=== PATIENT | male | born 2000 | race Caucasian/White ===

== ENCOUNTER 2019-02-26 00:13 | Emergency (ER) | payer OTHER ==
[2019-02-26 00:20] VITALS: BP 129/84
[2019-02-26] MEDS ORDERED: TRAMADOL HCL 50 MG TABLET PO ONE (00:53)
[2019-02-26] MEDS ORDERED: ONDANSETRON 4 MG TAB.RAPDIS PO ONE (00:53)
--- NOTE | 2019-02-26 00:55 | ER Document Report ---
ED General - General Chief Complaint: Bloody Stools Stated Complaint: BLOODY STOOL Time Seen by Provider: 02/26/19 00:52 Mode of Arrival: Ambulatory Information source: Patient TRAVEL OUTSIDE OF THE [place] IN LAST 30 DAYS: No - HPI Notes: Patient complains of abdominal cramping. States started approximate 1 hour ago. It radiates across the abdomen. Nothing makes it better or worse. It is moderate intensity. He denies any trouble with urination. He states he has had loose stool and some diarrhea today. There is one episode of blood in his diarrhea. No fevers. No previous history of abdominal surgeries. - Related Data Allergies/Adverse Reactions: No Known Drug Allergies Allergy (Verified 02/26/19 00:58) Past Medical History - General Information source: Patient - Social History Smoking Status: Never Smoker Frequency of alcohol use: None Drug Abuse: None Family History: Reviewed & Not Pertinent Review of Systems - Review of Systems Constitutional: Malaise, Weakness. denies: Chills, Fever Cardiovascular: denies: Chest pain, Dyspnea Respiratory: denies: Cough, Short of breath Gastrointestinal: Abdominal pain, Diarrhea -: Yes All other systems reviewed and negative Physical Exam - Vital signs Vitals: Temp Pulse Resp BP Pulse Ox 98.3 F 58 L 16 129/84 H 97 02/26/19 00:19 02/26/19 00:19 02/26/19 00:19 02/26/19 00:02/26/19 00:19 Interpretation: Normal - General General appearance: Appears well, Alert - HEENT Head: Normocephalic, Atraumatic Eyes: Normal Pupils: PERRL - Respiratory Respiratory status: No respiratory distress Chest status: Nontender Breath sounds: Normal Chest palpation: Normal - Cardiovascular Rhythm: Regular Heart sounds: Normal auscultation Murmur: No - Abdominal Inspection: Normal Distension: No distension Bowel sounds: Normal Tenderness: Nontender Organomegaly: No organomegaly - Back Back: Normal, Nontender - Extremities General upper extremity: Normal inspection, Nontender, Normal color, Normal ROM, Normal temperature General lower extremity: Normal inspection, Nontender, Normal color, Normal ROM, Normal temperature, Normal weight bearing. No: Polo's sign - Neurological Neuro grossly intact: Yes Cognition: Normal Orientation: AAOx4 Emperatriz Coma Scale Eye Opening: Spontaneous Marcellus Coma Scale Verbal: Oriented Marcellus Coma Scale Motor: Obeys Commands Emperatriz Coma Scale Total: 15 Speech: Normal Motor strength normal: LUE, RUE, LLE, RLE Sensory: Normal - Psychological Associated symptoms: Normal affect, Normal mood - Skin Skin Temperature: Warm Skin Moisture: Dry Skin Color: Normal Course - Re-evaluation Re-evalutation: 02/26/19 02:20 Patient reevaluated just now. Abdomen still soft nontender and nondistended. Laboratory evaluation is unremarkable. Vitals are unremarkable. I feel the patient can be safely discharged home to follow-up as an outpatient. - Vital Signs Vital signs: Temp Pulse Resp BP Pulse Ox 98.3 F 58 L 16 129/84 H 97 02/26/19 00:19 02/26/19 00:19 02/26/19 00:19 02/26/19 00:19 02/26/19 00:19 - Laboratory Result Diagrams: 02/26/19 01:11 02/26/19 01:11 Discharge - Discharge Clinical Impression: Diarrhea Qualifiers: Diarrhea type: presumed infectious Qualified Code(s): R19.7 - Diarrhea, unspec ified Condition: Stable Disposition: HOME, SELF-CARE Instructions: Diarrhea, Nonspecific ([facility]) Additional Instructions: Please call your family doctor as soon as possible to obtain follow-up Prescriptions: Ciprofloxacin HCl [Cipro 500 mg Tablet] 500 mg PO BID #10 tablet Metronidazole [Flagyl 500 mg Tablet] 500 mg PO BID #10 tablet Ondansetron [Zofran Odt 4 mg Tablet] 1 tab PO Q4H PRN #8 tab.rapdis PRN Reason: For Nausea/Vomiting Forms: Return to Work
[2019-02-26 01:20] LABS: ABSOLUTE BASOPHILS # (AUTO) 0.1 10^3/uL (0.0-0.2); ABSOLUTE EOSINOPHILS # (AUTO) 0.2 10^3/uL (0.0-0.6); ABSOLUTE LYMPHOCYTES (AUTO) 3.2 10^3/uL (0.5-4.7); ABSOLUTE MONOCYTES (AUTO) 0.8 10^3/uL (0.1-1.4); ABSOLUTE NEUT (AUTO) 4.2 10^3/uL (1.7-8.2); BASOPHILS % (AUTO) 0.9 % (0-2); EOSINOPHILS % (AUTO) 2.6 % (0-6); HEMATOCRIT 43.6 % (37.9-51.0); LYMPHOCYTES % (AUTO) 37.6 % (13-45); MEAN CORPUSCULAR HEMOGLOBIN 28.1 pg (27.0-33.4); MEAN CORPUSCULAR HGB CONC 34.3 g/dL (32.0-36.0); MEAN CORPUSCULAR VOLUME 82 fl (80-97); MONOCYTES % (AUTO) 9.3 % (3-13); PLATELET COUNT 257 10^3/uL (150-450); RED BLOOD COUNT 5.33 10^6/uL (4.35-5.55); RED CELL DISTRIBUTION WIDTH 13.7 % (11.5-14.0); SEGMENTED NEUTROPHILS % (AUTO) 49.6 % (42-78); TOTAL CELLS COUNTED % (AUTO) 100 %; WHITE BLOOD COUNT 8.6 10^3/uL (4.0-10.5)
[2019-02-26 01:22] LABS: APPEARANCE,URINE CLEAR; BILIRUBIN,URINE NEGATIVE (NEGATIVE); COLOR,URINE YELLOW; GLUCOSE, URINE NEGATIVE (NEGATIVE); KETONES,URINE NEGATIVE (NEGATIVE); LEUKOCYTE ESTERASE,URINE NEGATIVE (NEGATIVE); NITRITE,URINE NEGATIVE (NEGATIVE); PROTEIN,URINE NEGATIVE (NEGATIVE); URINE SPECIFIC GRAVITY 1.017; UROBILINOGEN,URINE NEGATIVE mg/dL (<2.0)
[2019-02-26 01:46] LABS: ASPARTATE AMINO TRANSFERASE 37 U/L (17-59); BILIRUBIN,DIRECT 0.4 mg/dL (0.0-0.4); BILIRUBIN,TOTAL 0.6 mg/dL (0.2-1.3); BLOOD UREA NITROGEN 14 mg/dL (7-20); CALCIUM 10.1 mg/dL (8.4-10.2); CARBON DIOXIDE 26 mmol/L (22-30); CHLORIDE 102 mmol/L (98-107); GLUCOSE 90 mg/dL (75-110); NEONATAL BILIRUBIN RESULT 0.3 mg/dL (0.1-1.1); TOTAL PROTEIN 7.7 g/dL (6.3-8.2)
[2019-02-26 01:56] LABS: ALBUMIN 4.9 g/dL (3.5-5.0); ALKALINE PHOSPHATASE 87 U/L (38-126); ANION GAP 12 (5-19); POTASSIUM 4.2 mmol/L (3.6-5.0)
== END 2019-02-26 02:31 | disposition home or self-care (01) ==
LOC: ER 00:13
DX: K92.1 Melena (principal); R53.1 Weakness; R10.9 Unspecified abdominal pain
CPT/HCPCS: 99284; 36415; 85025; 80053; 81001; S0119

== ENCOUNTER 2019-03-05 14:27 | Emergency (ER) | payer OTHER ==
--- NOTE | 2019-03-05 15:13 | ER Document Report ---
ED Medical Screen (RME) - General Chief Complaint: Abdominal Pain Stated Complaint: NAUSEA,HEADACHE,RIGHT ANKLE PAIN Time Seen by Provider: 03/05/19 15:06 Mode of Arrival: Ambulatory Information source: Patient Notes: Patient is an otherwise healthy 18-year-old male presented to the emergency department with chief complaint of left lower quadrant abdominal pain, right ankle pain and nausea. Patient reports he was seen last week and diagnosed with a possible virus but patient reports he was put on antibiotics. He reports that he was told to come back in a week if his symptoms have not improved. He reports he has not had a bowel movement in 2 days. He states he is now out of nausea medication. Additionally patient also complains of right ankle pain as he states he rolled his ankle at work 2 days ago. He denies any treatment for this. Exam: Mild tenderness to palpation to the left lower quadrant without guarding or rebound. Patient appears well, nontoxic. No obvious swelling or deformity noted to right ankle. I have greeted and performed a rapid initial assessment of this patient. A comprehensive ED assessment and evaluation of the patient, analysis of test results and completion of the medical decision making process will be conducted by additional ED providers. I have specifically instructed the patient or family members with the patient to immediately return to any nursing staff should anything change in the patient's condition or with their chief complaint. This medical record was dictated with voice recognizing software. There may be grammatical, syntax errors that are unintended. TRAVEL OUTSIDE OF THE [place] IN LAST 30 DAYS: No - Related Data Allergies/Adverse Reactions: No Known Drug Allergies Allergy (Verified 02/26/19 00:58) Past Medical History - Social History Chew tobacco use (# tins/day): No Frequency of alcohol use: Occasional Drug Abuse: None Physical Exam - Vital signs Vitals: Temp Pulse Resp BP Pulse Ox 98.9 F 58 L 16 130/84 H 98 03/05/19 14:33 03/05/19 14:33 03/05/19 14:33 03/05/19 14:33 03/05/19 14:33 Course - Vital Signs Vital signs: Temp Pulse Resp BP Pulse Ox 98.9 F 58 L 16 130/84 H 98 03/05/19 14:33 03/05/19 14:33 03/05/19 14:33 03/05/19 14:33 03/05/19 14:33
[2019-03-05 15:55] LABS: ABSOLUTE BASOPHILS # (AUTO) 0.1 10^3/uL (0.0-0.2); ABSOLUTE EOSINOPHILS # (AUTO) 0.2 10^3/uL (0.0-0.6); ABSOLUTE MONOCYTES (AUTO) 0.8 10^3/uL (0.1-1.4); ABSOLUTE NEUT (AUTO) 7.2 10^3/uL (1.7-8.2); BASOPHILS % (AUTO) 0.5 % (0-2); HEMATOCRIT 47.3 % (37.9-51.0); HEMOGLOBIN 16.5 g/dL (13.5-17.0); LYMPHOCYTES % (AUTO) 19.5 % (13-45); MEAN CORPUSCULAR HEMOGLOBIN 28.4 pg (27.0-33.4); MEAN CORPUSCULAR HGB CONC 34.8 g/dL (32.0-36.0); MEAN CORPUSCULAR VOLUME 82 fl (80-97); MONOCYTES % (AUTO) 8.3 % (3-13); PLATELET COUNT 267 10^3/uL (150-450); RED BLOOD COUNT 5.81 10^6/uL (4.35-5.55); RED CELL DISTRIBUTION WIDTH 13.7 % (11.5-14.0); SEGMENTED NEUTROPHILS % (AUTO) 69.7 % (42-78); TOTAL CELLS COUNTED % (AUTO) 100 %; WHITE BLOOD COUNT 10.2 10^3/uL (4.0-10.5)
[2019-03-05 16:03] LABS: APPEARANCE,URINE CLEAR; BILIRUBIN,URINE NEGATIVE (NEGATIVE); COLOR,URINE YELLOW; GLUCOSE, URINE NEGATIVE (NEGATIVE); KETONES,URINE NEGATIVE (NEGATIVE); LEUKOCYTE ESTERASE,URINE NEGATIVE (NEGATIVE); NITRITE,URINE NEGATIVE (NEGATIVE); PROTEIN,URINE NEGATIVE (NEGATIVE); URINE SPECIFIC GRAVITY 1.023; UROBILINOGEN,URINE NEGATIVE mg/dL (<2.0)
[2019-03-05 16:11] LABS: ALBUMIN 5.1 g/dL (3.5-5.0); ALKALINE PHOSPHATASE 77 U/L (38-126); ANION GAP 11 (5-19); ASPARTATE AMINO TRANSFERASE 28 U/L (17-59); BILIRUBIN,DIRECT 0.1 mg/dL (0.0-0.4); BILIRUBIN,TOTAL 0.8 mg/dL (0.2-1.3); BLOOD UREA NITROGEN 11 mg/dL (7-20); CALCIUM 10.1 mg/dL (8.4-10.2); CARBON DIOXIDE 29 mmol/L (22-30); CHLORIDE 100 mmol/L (98-107); GLUCOSE 92 mg/dL (75-110); POTASSIUM 4.6 mmol/L (3.6-5.0); TOTAL PROTEIN 8.1 g/dL (6.3-8.2)
--- NOTE | 2019-03-05 16:19 | RADIOLOGY REPORT (SQ) ---
EXAM DESCRIPTION: KUB/ABDOMEN (SINGLE VIEW) COMPLETED DATE/TIME: 03/05/2019 4:05 pm REASON FOR STUDY: LLQ pain no BM x2 days COMPARISON: None. NUMBER OF VIEWS: One view. TECHNIQUE: Supine radiographic image of the abdomen acquired. LIMITATIONS: None. FINDINGS: BOWEL GAS PATTERN: Normal gas pattern. There is not appear to be a significant amount of retained stool. CALCIFICATIONS: No suspicious calcifications. SOFT TISSUES: No gross mass or suggestion of organomegaly. HARDWARE: None in the abdomen. BONES: No acute fracture. No worrisome bone lesions. OTHER: No other significant finding. IMPRESSION: NO RADIOGRAPHIC EVIDENCE FOR ACUTE ABDOMINAL DISEASE. TECHNICAL DOCUMENTATION: JOB ID: [id number] [employer]- All Rights Reserved Reading location - IP/workstation name: [email or web address]
--- NOTE | 2019-03-05 16:19 | RADIOLOGY REPORT (SQ) ---
EXAM DESCRIPTION: ANKLE RIGHT COMPLETE COMPLETED DATE/TIME: 03/05/2019 4:05 pm REASON FOR STUDY: rolled R ankle, now pain COMPARISON: None. NUMBER OF VIEWS: Three views. TECHNIQUE: AP, lateral, and oblique radiographic images acquired of the right ankle. LIMITATIONS: None. FINDINGS: MINERALIZATION: Normal. BONES: No acute fracture or dislocation. No worrisome bone lesions. JOINTS: No effusions. SOFT TISSUES: No soft tissue swelling. No foreign body. OTHER: No other significant finding. IMPRESSION: NEGATIVE STUDY OF THE RIGHT ANKLE. NO RADIOGRAPHIC EVIDENCE OF ACUTE INJURY. TECHNICAL DOCUMENTATION: JOB ID: [id number] [employer]- All Rights Reserved Reading location - IP/workstation name: [email or web address]
[2019-03-05] MEDS ORDERED: ONDANSETRON 4 MG TAB.RAPDIS PO ONE (16:47)
--- NOTE | 2019-03-05 16:53 | ER Document Report ---
ED GI/ - General Chief Complaint: Abdominal Pain Stated Complaint: NAUSEA,HEADACHE,RIGHT ANKLE PAIN Time Seen by Provider: 03/05/19 15:06 Mode of Arrival: Ambulatory Notes: Patient is a 18-year-old male who presents to the emergency department with a chief complaint of left lower abdominal pain. Patient states he was seen here last week and diagnosed with infectious colitis. Patient reports he was placed on 2 antibiotics. Patient reports the diarrhea and blood in the stool has subsided. Patient reports his last bowel movement was 2 days ago and at that time there was no blood in the stool although it did remained a diarrhea type stool. Patient reports he continues to have the left lower quadrant cramping. Patient denies fever. Patient reports a decreased appetite. Patient reports he had has nausea without vomiting. Patient states he is extremely nauseous and did run out of the Zofran. Patient denies urinary symptoms. Patient also reports 2 nights ago he rolled his right ankle. Patient states he has been able to ambulate but does have pain to the right lateral ankle. Patient reports some swelling. TRAVEL OUTSIDE OF THE [place] IN LAST 30 DAYS: No - Related Data Allergies/Adverse Reactions: No Known Drug Allergies Allergy (Verified 02/26/19 00:58) Past Medical History - General Information source: Patient - Social History Smoking Status: Never Smoker Chew tobacco use (# tins/day): No Frequency of alcohol use: Occasional Drug Abuse: None Lives with: Spouse/Significant other Family History: Reviewed & Not Pertinent Patient has suicidal ideation: No Patient has homicidal ideation: No - Past Medical History Cardiac Medical History: Reports: None Pulmonary Medical History: Reports: None EENT Medical History: Reports: None Neurological Medical History: Reports: None Endocrine Medical History: Reports: None Renal/ Medical History: Reports: None Malignancy Medical History: Reports None GI Medical History: Reports: None Musculoskeletal Medical History: Reports None Skin Medical History: Reports None Psychiatric Medical History: Reports: None Traumatic Medical History: Reports: None Infectious Medical History: Reports: None Past Surgical History: Reports: None Review of Systems - Review of Systems Constitutional: See HPI EENT: No symptoms reported Cardiovascular: No symptoms reported Respiratory: No symptoms reported Gastrointestinal: See HPI Genitourinary: No symptoms reported Male Genitourinary: No symptoms reported Musculoskeletal: See HPI Skin: No symptoms reported Hematologic/Lymphatic: No symptoms reported Neurological/Psychological: No symptoms reported Physical Exam - Vital signs Vitals: Temp Pulse Resp BP Pulse Ox 98.9 F 58 L 16 130/84 H 98 03/05/19 14:33 03/05/19 14:33 03/05/19 14:33 03/05/19 14:33 03/05/19 14:33 Interpretation: Normal - Notes Notes: GENERAL: Well-appearing, well-nourished and in no acute distress. HEAD: Atraumatic, normocephalic. EYES: Pupils equal round and reactive to light, extraocular movements intact, sclera anicteric, conjunctiva are normal. ENT: Nares patent, oropharynx clear without exudates. Moist mucous membranes. NECK: Normal range of motion, supple without lymphadenopathy or JVD. LUNGS: Breath sounds clear to auscultation bilaterally and equal. No wheezes rales or rhonchi. HEART: Regular rate and rhythm without murmurs, rubs or gallops. ABDOMEN: Soft, mild LLQ tenderness with palpation, normoactive bowel sounds. No guarding, no rebound. No masses appreciated. BACK: No cervical, thoracic, lumbar midline tenderness. No saddle anesthesia, normal distal neurovascular exam. GENITOURINARY: Deferred. EXTREMITIES: Normal range of motion, + mild edema noted to the lateral malleolus of the right ankle. No obvious deformity. Patient has a strong palpable dorsalis pedis and posterior tibial pulse. NEUROLOGICAL: Cranial nerves II through XII grossly intact. Normal speech, normal gait. PSYCH: Normal mood, normal affect. SKIN: Warm, Dry, normal turgor, no rashes or lesions noted. Course - Re-evaluation Re-evalutation: 03/05/19 16:51 Patient's lab work was unremarkable without a leukocytosis, alteration in electrolytes or liver function and a negative urine specimen. Patient does have mild tenderness to the left lower quadrant. I do believe this is residual and possible inflammation from the recent diagnosis and treatment of infectious colitis. I did discuss the risk and benefit of obtaining a cat scan with the patient and . Patient aware that it does increase his risk for cancer and exposure to radiation and my suspicions for an acute problem are negative as it does appear that the diarrhea is improving. Patient states he would like to continue with the CAT scan. 03/05/19 18:05 Upon reevaluation patient is resting comfortably on stretcher. Patient's CAT scan is negative. Will give patient a dose of Zofran to go home with. Patient to start with clear liquids and advance diet as tolerated. Patient given strict return precautions. - Vital Signs Vital signs: Temp Pulse Resp BP Pulse Ox 98.9 F 58 L 16 130/84 H 98 03/05/19 14:33 03/05/19 14:33 03/05/19 14:33 03/05/19 14:33 03/05/19 14:33 - Laboratory Result Diagrams: 03/05/19 15:40 03/05/19 15:40 Laboratory results interpreted by me: 03/05/19 03/05/19 15:40 15:40 RBC 5.81 H Albumin 5.1 H - Diagnostic Test Radiology reviewed: Reports reviewed Radiology results interpreted by me: 03/05/19 16:52 Ankle X-Ray 03/05/19 15:10 IMPRESSION: NEGATIVE STUDY OF THE RIGHT ANKLE. NO RADIOGRAPHIC EVIDENCE OF ACUTE INJURY. KUB X-Ray 03/05/19 15:10 IMPRESSION: NO RADIOGRAPHIC EVIDENCE FOR ACUTE ABDOMINAL DISEASE. 03/05/19 18:04 Ankle X-Ray 03/05/19 15:10 IMPRESSION: NEGATIVE STUDY OF THE RIGHT ANKLE. NO RADIOGRAPHIC EVIDENCE OF ACUTE INJURY. KUB X-Ray 03/05/19 15:10 IMPRESSION: NO RADIOGRAPHIC EVIDENCE FOR ACUTE ABDOMINAL DISEASE. Abdomen/Pelvis CT 03/05/19 16:47 IMPRESSION: NO SIGNIFICANT OR ACUTE FINDING IN THE ABDOMEN OR PELVIS ON CT SCAN WITH IV CONTRAST. Discharge - Discharge Clinical Impression: Ankle sprain Qualifiers: Encounter type: initial encounter Involved ligament of ankle: other ligament Laterality: right Qualified Code(s): S93.491A - Sprain of other ligament of right ankle, initial encounter Abdominal pain Qualifiers: Abdominal location: left lower quadrant Qualified Code(s): R10.32 - Left lower quadrant pain Condition: Stable Disposition: HOME, SELF-CARE Additional Instructions: Today you are seen in the emergency department for abdominal pain. The CAT scan, lab work and urinalysis were all unremarkable for any acute abnormality. It appears that her symptoms are improving as you have not had diarrhea in 2 days or blood in the stool at that time. Please continue to hydrate appropriately and advance diet as tolerated. Please return to the emergency department if you develop pain that is severe or worsening, vomiting, blood in the vomit or stool, fever, if your abdomen becomes more distended or swollen or any other concerning signs or symptoms. You are being diagnosed with an ankle sprain. We have placed you in an Christopher wrap and give you crutches. Please ice and elevate the extremity. At this time you do not have an acute fracture. Stay Tylenol or ibuprofen as needed for pain. Abdominal Pain There are many causes of abdominal pain. Pain can mean a serious problem requiring surgery (such as appendicitis). It can also be an innocent problem that goes away on its own (such as a viral infection). Often, time must pass to determine the cause of pain. The physician does not feel that hospitalization is necessary, at present. Things may change within the next 24 hours. Call the doctor or come back for re- examination if any problems occur, such as: (1) Pain that becomes more severe, steady, or becomes concentrated in one specific area. Also, pain that is more severe with movement or coughing. (2) Vomiting that persists or becomes more frequent. (3) Blood in the vomitus, urine, or bowel movements. Blood in the stool may have a tarry or black appearance. (4) Shaking chills or fever greater than 100 degrees F. (5) The abdomen becomes more distended or swollen. (6) Bowel movements cease. (7) Failure to improve as expected. Sprain Your injury is a sprain. A sprain results from stretching or tearing of the ligaments, usually from a twisting injury. The ligaments will require time and protection in order to heal properly. Many sprains are quite disabling and should be taken seriously. The usual initial treatment of sprains is cold packs, elevation, and rest of the injured area. Your physician has assessed the seriousness of your ligament injury, and has outlined a treatment plan. Understand that this treatm ent may change, depending on how you progress. If a re-examination was recommended, it is important that you follow up as instructed. Call the doctor any time if there is severe pain, numbness, or loss of function in the injured area.
--- NOTE | 2019-03-05 18:02 | RADIOLOGY REPORT (SQ) ---
EXAM DESCRIPTION: CT ABD/PELVIS WITH IV ONLY COMPLETED DATE/TIME: 03/05/2019 5:32 pm REASON FOR STUDY: continued llq pain COMPARISON: None. TECHNIQUE: CT scan of the abdomen and pelvis performed using helical scanning technique with dynamic intravenous contrast injection. No oral contrast. Images reviewed with lung, soft tissue, and bone windows. Reconstructed coronal and sagittal MPR images reviewed. Delayed images for evaluation of the urinary system also acquired. All images stored on PACS. All CT scanners at this facility use dose modulation, iterative reconstruction, and/or weight based d osing when appropriate to reduce radiation dose to as low as reasonably achievable (ALARA). [facility]: Dose Right [facility]: CareDose [facility]: Dose Right [facility]: Teradose 4D [facility]: [employer] CONTRAST TYPE AND DOSE: contrast/concentration: Isovue 350.00 mg/ml; Total Contrast Delivered: 74.0 ml; Total Saline Delivered: 67.0 ml RENAL FUNCTION: BUN 11 creatinine 1 RADIATION DOSE: CT Rad equipment meets quality standard of care and radiation dose reduction techniq ues were employed. CTDIvol: 5.0 - 5.8 mGy. DLP: 558 mGy-cm.. LIMITATIONS: None. FINDINGS: LOWER CHEST: No significant findings. No nodules or infiltrates. LIVER: Normal size. No masses. No dilated ducts. SPLEEN: Normal size. No focal lesions. PANCREAS: No masses. No significant calcifications. No adjacent inflammation or peripancreatic fluid collections. Pancreatic duct not dilated. GALLBLADDER: No identified stones by CT criteria. No inflammatory changes to suggest cholecystitis. ADRENAL GLANDS: No significant masses or asymmetry. RIGHT KIDNEY AND URETER: No solid masses. No significant calcifications. No hydronephrosis or hyd roureter. LEFT KIDNEY AND URETER: No solid masses. No significant calcifications. No hydronephrosis or hydr oureter. AORTA AND VESSELS: No aneurysm. No dissection. Renal arteries, SMA, celiac without stenosis. RETROPERITONEUM: No retroperitoneal adenopathy, hemorrhage or masses. BOWEL AND PERITONEAL CAVITY: No masses or inflammatory changes. No free fluid or peritoneal masses. APPENDIX: Not identified. PELVIS: No mass. No free fluid. Normal bladder. ABDOMINAL WALL: No masses. No hernias. BONES: No significant or acute findings. OTHER: No other significant finding. IMPRESSION: NO SIGNIFICANT OR ACUTE FINDING IN THE ABDOMEN OR PELVIS ON CT SCAN WITH IV CONTRAST. TECHNICAL DOCUMENTATION: JOB ID: [id number] Quality ID # [id number]: Final reports with documentation of one or more dose reduction techniques (e.g., Au tomated exposure control, adjustment of the mA and/or kV according to patient size, use of iterative reconstruction technique) 2010 [employer]- All Rights Reserved Reading location - IP/workstation name: [email or web address]
[2019-03-05] MEDS ORDERED: ONDANSETRON ODT 4 MG TAB (6 TAB/ER DISP) PO PRN (18:27)
[2019-03-05 19:07] VITALS: BP 115/67
== END 2019-03-05 19:06 | disposition home or self-care (01) ==
LOC: ER 14:27
DX: R10.32 Left lower quadrant pain (principal); R10.814 Left lower quadrant abdominal tenderness; S93.401A Sprain of unspecified ligament of right ankle, initial encounter; M25.571 Pain in right ankle and joints of right foot; X50.9XXA Other and unspecified overexertion or strenuous movements or postures, initial encounter; R63.0 Anorexia; R11.0 Nausea
CPT/HCPCS: 99284; 36415; 83690; 85025; 80053; 81001; 73610; 74018; 74177; S0119

== ENCOUNTER 2019-03-12 13:47 | Emergency (ER) | payer OTHER ==
--- NOTE | 2019-03-12 14:08 | ER Document Report ---
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 Reports he has had the symptoms for the past 2 weeks he has been here several times as well as to see his BAS. Is supposed to be scheduling himself for colonoscopy. Reports his stools are now black. Denies past medical history of chronic abdominal issues such as IBS or diverticulitis. I have greeted and performed a rapid initial assessment of this patient. A comprehensive ED assessment and evaluation of the patient, analysis of test results and completion of the medical decision making process will be conducted by additional ED providers. Dictation of this chart was performed using voice recognition software; therefore, there may be some unintended grammatical errors. TRAVEL OUTSIDE OF THE [place] IN LAST 30 DAYS: No - Related Data Allergies/Adverse Reactions: No Known Drug Allergies Allergy (Verified 03/12/19 13:49) Past Medical History - Social History Frequency of alcohol use: Social Drug Abuse: None Physical Exam - Vital signs Vitals: Temp Pulse Resp BP Pulse Ox 97.8 F 62 18 132/66 H 97 03/12/19 13:53 03/12/19 13:53 03/12/19 13:53 03/12/19 13:53 03/12/19 13:53 Course - Vital Signs Vital signs: Temp Pulse Resp BP Pulse Ox 97.8 F 62 18 132/66 H 97 03/12/19 13:53 03/12/19 13:53 03/12/19 13:53 03/12/19 13:53 03/12/19 13:53 - Laboratory Result Diagrams: 03/12/19 14:20 03/12/19 14:20 Laboratory results interpreted by me: 03/12/19 03/12/19 14:20 14:20 RBC 5.74 H Albumin 5.2 H Doctor's Discharge - Discharge Clinical Impression: Left lower quadrant abdominal pain Condition: Stable Disposition: HOME, SELF-CARE Instructions: Abdominal Pain ([facility]) Additional Instructions: Please follow-up with colonoscopy as scheduled Prescriptions: Tramadol HCl [Ultram] 50 mg PO Q6 3 Days #12 tablet Referrals: FOSTER CARLISLE MD [ACTIVE STAFF] - Follow up as needed
[2019-03-12 14:37] LABS: ABSOLUTE BASOPHILS # (AUTO) 0.1 10^3/uL (0.0-0.2); ABSOLUTE EOSINOPHILS # (AUTO) 0.2 10^3/uL (0.0-0.6); ABSOLUTE MONOCYTES (AUTO) 0.5 10^3/uL (0.1-1.4); ABSOLUTE NEUT (AUTO) 4.6 10^3/uL (1.7-8.2); BASOPHILS % (AUTO) 0.8 % (0-2); EOSINOPHILS % (AUTO) 2.3 % (0-6); HEMATOCRIT 46.2 % (37.9-51.0); LYMPHOCYTES % (AUTO) 27.3 % (13-45); MEAN CORPUSCULAR HEMOGLOBIN 27.9 pg (27.0-33.4); MEAN CORPUSCULAR HGB CONC 34.7 g/dL (32.0-36.0); MEAN CORPUSCULAR VOLUME 81 fl (80-97); MONOCYTES % (AUTO) 7.1 % (3-13); PLATELET COUNT 304 10^3/uL (150-450); RED BLOOD COUNT 5.74 10^6/uL (4.35-5.55); RED CELL DISTRIBUTION WIDTH 13.3 % (11.5-14.0); SEGMENTED NEUTROPHILS % (AUTO) 62.5 % (42-78); TOTAL CELLS COUNTED % (AUTO) 100 %; WHITE BLOOD COUNT 7.3 10^3/uL (4.0-10.5)
[2019-03-12] MEDS ORDERED: TRAMADOL HCL 50 MG TABLET PO ONE (14:51)
[2019-03-12 14:54] LABS: ALBUMIN 5.2 g/dL (3.5-5.0); ALKALINE PHOSPHATASE 77 U/L (38-126); ANION GAP 13 (5-19); ASPARTATE AMINO TRANSFERASE 26 U/L (17-59); BILIRUBIN,DIRECT 0.1 mg/dL (0.0-0.4); BILIRUBIN,TOTAL 0.7 mg/dL (0.2-1.3); BLOOD UREA NITROGEN 13 mg/dL (7-20); CARBON DIOXIDE 24 mmol/L (22-30); CHLORIDE 102 mmol/L (98-107); GLUCOSE 100 mg/dL (75-110); POTASSIUM 4.2 mmol/L (3.6-5.0); TOTAL PROTEIN 8.1 g/dL (6.3-8.2)
[2019-03-12 15:04] LABS: APPEARANCE,URINE CLEAR; BILIRUBIN,URINE NEGATIVE (NEGATIVE); COLOR,URINE YELLOW; GLUCOSE, URINE NEGATIVE (NEGATIVE); KETONES,URINE NEGATIVE (NEGATIVE); LEUKOCYTE ESTERASE,URINE NEGATIVE (NEGATIVE); NITRITE,URINE NEGATIVE (NEGATIVE); PROTEIN,URINE NEGATIVE (NEGATIVE); URINE SPECIFIC GRAVITY 1.019; UROBILINOGEN,URINE NEGATIVE mg/dL (<2.0)
--- NOTE | 2019-03-12 15:25 | RADIOLOGY REPORT (SQ) ---
EXAM DESCRIPTION: CT ABD/PELVIS NO ORAL OR IV COMPLETED DATE/TIME: 03/12/2019 3:00 pm REASON FOR STUDY: llq pain COMPARISON: 03/05/2019 TECHNIQUE: CT scan of the abdomen and pelvis performed without intravenous or oral contrast. Images reviewed with lung, soft tissue, and bone windows. Reconstructed coronal and sagittal MPR images revi ewed. All images stored on PACS. All CT scanners at this facility use dose modulation, iterative reconstruction, and/or weight based d osing when appropriate to reduce radiation dose to as low as reasonably achievable (ALARA). [facility]: Dose Right [facility]: CareDose [facility]: Dose Right [facility]: Teradose 4D [facility]: [employer] RADIATION DOSE: CT Rad equipment meets quality standard of care and radiation dose reduction techniq ues were employed. CTDIvol: 5.2 mGy. DLP: 308 mGy-cm.mGy. LIMITATIONS: None. FINDINGS: LOWER CHEST: No significant findings. No nodules or infiltrates. NON-CONTRASTED LIVER, SPLEEN, ADRENALS: Evaluation limited by lack of IV contrast. No identified sign ificant masses. PANCREAS: No masses. No peripancreatic inflammatory changes. GALLBLADDER: No identified stones by CT criteria. No inflammatory changes to suggest cholecystitis. RIGHT KIDNEY AND URETER: No suspicious masses. Assessment limited by lack of IV contrast. No signif icant calcifications. No hydronephrosis or hydroureter. LEFT KIDNEY AND URETER: No suspicious masses. Assessment limited by lack of IV contrast. No signifi cant calcifications. No hydronephrosis or hydroureter. AORTA AND RETROPERITONEUM: No aneurysm. No retroperitoneal masses or adenopathy. BOWEL AND PERITONEAL CAVITY: No obvious masses or inflammatory changes. No free fluid. APPENDIX: Not visualized. PELVIS, BLADDER, AND ABDOMINAL WALL:No abnormal masses. No free fluid. Bladder normal. BONES: No significant findings. OTHER: No other significant finding. IMPRESSION: NO SIGNIFICANT OR ACUTE PROCESS IN THE ABDOMEN OR PELVIS. COMMENT: Quality ID # [id number]: Final reports with documentation of one or more dose reduction techniques (e.g., Automated exposure control, adjustment of the mA and/or kV according to patient size, use of iterative reconstruction technique) TECHNICAL DOCUMENTATION: JOB ID: [id number] [email or web address]- All Rights Reserved Reading location - IP/workstation name: [email or web address]
--- NOTE | 2019-03-12 15:45 | ER Document Report ---
ED General - General Chief Complaint: Lower Abdominal Pain Stated Complaint: LEFT SIDE ABDOMINAL PAIN Time Seen by Provider: 03/12/19 14:02 Mode of Arrival: Ambulatory TRAVEL OUTSIDE OF THE [place] IN LAST 30 DAYS: No - HPI Notes: Patient presents complaint of left lower quadrant abdominal pain. He has had this pain intermittently for the last 2 weeks. He has had normal appetite. He states his stools have become black and have been intermittently loose. No trouble with urination. The pain is in his left lower abdomen and radiates into the left groin. It does not go into the testicle. He has not appreciated any masses. Nothing makes the pain better or worse. It is moderate in intensity. It is intermittent. It is a sharp sensation. He has had no vomiting. No pre vious history of abdominal surgeries. He has been seen here twice before with a negative evaluation including CT scan. He is also been seen on the [facility]. He is currently in the process of arranging for colonoscopy. - Related Data Allergies/Adverse Reactions: No Known Drug Allergies Allergy (Verified 03/12/19 13:49) Past Medical History - General Information source: Patient - Social History Smoking Status: Former Smoker Frequency of alcohol use: Social Drug Abuse: None Family History: Reviewed & Not Pertinent Patient has suicidal ideation: No Patient has homicidal ideation: No Review of Systems - Review of Systems Constitutional: denies: Chills, Fever Cardiovascular: denies: Chest pain, Dizziness Respiratory: denies: Cough, Short of breath Gastrointestinal: Abdominal pain, Diarrhea -: Yes All other systems reviewed and negative Physical Exam - Vital signs Vitals: Temp Pulse Resp BP Pulse Ox 97.8 F 62 18 132/66 H 97 03/12/19 13:53 03/12/19 13:53 03/12/19 13:53 03/12/19 13:53 03/12/19 13:53 Interpretation: Normal - General General appearance: Appears well, Alert - HEENT Head: Normocephalic, Atraumatic Eyes: Normal Pupils: PERRL - Respiratory Respiratory status: No respiratory distress Chest status: Nontender Breath sounds: Normal Chest palpation: Normal - Cardiovascular Rhythm: Regular Heart sounds: Normal auscultation Murmur: No - Abdominal Inspection: Normal Distension: No distension Bowel sounds: Normal Tenderness: Tender - Minimal tenderness to palpation of the left lower quadrant. No rebound no guarding. Organomegaly: No organomegaly - Back Back: Normal, Nontender - Extremities General upper extremity: Normal inspection, Nontender, Normal color, Normal ROM, Normal temperature General lower extremity: Normal inspection, Nontender, Normal color, Normal ROM, Normal temperature, Normal weight bearing. No: Polo's sign - Neurological Neuro grossly intact: Yes Cognition: Normal Orientation: AAOx4 [place] Coma Scale Eye Opening: Spontaneous [place] Coma Scale Verbal: Oriented Emperatriz Coma Scale Motor: Obeys Commands Emperatriz Coma Scale Total: 15 Speech: Normal Motor strength normal: LUE, RUE, LLE, RLE Sensory: Normal - Psychological Associated symptoms: Normal affect, Normal mood - Skin Skin Temperature: Warm Skin Moisture: Dry Skin Color: Normal Course - Re-evaluation Re-evalutation: 03/12/19 15:43 Patient reassessed just now. No significant change. His vitals are still stable and normal. No change on CT scan. Laboratories are unremarkable. I do not feel the patient would benefit from further emergency department evaluation. I have instructed patient to follow-up as an outpatient with the colonoscopy. - Vital Signs Vital signs: Temp Pulse Resp BP Pulse Ox 97.8 F 62 18 132/66 H 97 03/12/19 13:53 03/12/19 13:53 03/12/19 13:53 03/12/19 13:53 03/12/19 13:53 - Laboratory Result Diagrams: 03/12/19 14:20 03/12/19 14:20 Laboratory results interpreted by me: 03/12/19 03/12/19 14:20 14:20 RBC 5.74 H Albumin 5.2 H - Diagnostic Test Radiology reviewed: Image reviewed, Reports reviewed Discharge - Discharge Clinical Impression: Left lower quadrant abdominal pain Condition: Stable Disposition: HOME, SELF-CARE Instructions: Abdominal Pain ([facility]) Additional Instructions: Please follow-up with colonoscopy as scheduled Prescriptions: Tramadol HCl [Ultram] 50 mg PO Q6 3 Days #12 tablet Referrals: FOSTER CARLISLE MD [ACTIVE STAFF] - Follow up as needed
[2019-03-12 16:48] VITALS: BP 120/81
== END 2019-03-12 16:48 | disposition home or self-care (01) ==
LOC: ER 13:47
DX: R10.32 Left lower quadrant pain (principal); R10.814 Left lower quadrant abdominal tenderness; R19.7 Diarrhea, unspecified; R19.5 Other fecal abnormalities; Z87.891 Personal history of nicotine dependence
CPT/HCPCS: 36415; 74176; 80053; 81001; 83690; 85025; 99284